=== PATIENT | female | born 1965 | race Caucasian/White ===

== ENCOUNTER 2018-01-04 06:26 | Day surgery (SDC) | payer BC ==
[~2018-01-04] VITALS: Ht 167.6 cm; Wt 72.5 kg
[~2018-01-04 06:26] MED LIST: AMOXICILLIN500 MG PO; MIRENA1 EACH IY; NASAL SPRAY; OMEPRAZOLE40 M1 PO; TRIAMTERENE-HC1 EAC1 PO
[2018-01-04 06:50] VITALS: BP 147/67
[2018-01-04] MEDS ORDERED: PERCOCET 5/31 TABLET PO (10:59)
[2018-01-04] MEDS ORDERED: COLACE100 MG PO (11:05)
[2018-01-04 11:20] VITALS: BP 146/69
[2018-01-04 12:20] VITALS: BP 130/65
[2018-01-04 13:02] VITALS: BP 136/74
== END 2018-01-04 13:00 | disposition home or self-care (01) ==
LOC: SDC
DX: K80.10 Calculus of gallbladder with chronic cholecystitis without obstruction (principal); K66.0 Peritoneal adhesions (postprocedural) (postinfection); Z68.31 Body mass index [BMI] 31.0-31.9, adult; E06.3 Autoimmune thyroiditis; I10 Essential (primary) hypertension; E55.9 Vitamin D deficiency, unspecified; Z82.49 Family history of ischemic heart disease and other diseases of the circulatory system; Z82.61 Family history of arthritis; Z81.1 Family history of alcohol abuse and dependence; Z97.5 Presence of (intrauterine) contraceptive device
CPT/HCPCS: 88304; J0131; J0330; J1100; J1170; J2250; J2405; J3010; Q0175; S0074

== ENCOUNTER 2018-01-06 05:54 | Emergency (ER) | payer BC ==
[~2018-01-06] VITALS: Ht 167.6 cm; Wt 71.7 kg
[~2018-01-06 05:54] MED LIST changes: +COLACE100 MG PO; +PERCOCET 5/31 TABLET PO
[2018-01-06 06:30] LABS: HEMATOCRIT 43.9 % (36.0-46.0); HEMOGLOBIN 15.2 G/DL (11.9-15.5); MCH 29.2 PG (29.0-34.0); MCHC 34.6 G/DL (30.0-36.0); MCV 84.3 FL (83-99); PLATELET COUNT 320 K/uL (156-360); RBC DIS.WIDTH-CV 13.4 % (11.8-14.6); RBC DIS.WIDTH-SD 41.9 % (39-53); RED BLOOD COUNT 5.21 M/uL (3.80-5.20); WHITE BLOOD COUNT 14.4 K/uL (4.1-10.2)
[2018-01-06 06:40] LABS: ALBUMIN 4.4 g/dL (3.2-4.8)
[2018-01-06 06:41] LABS: CHLORIDE 104 mEq/L (99-109); POTASSIUM 3.5 mEq/L (3.7-5.4); SODIUM 142 mEq/L (136-147)
[2018-01-06 06:43] LABS: GLUCOSE 125 mg/dL (70-99); TOTAL PROTEIN 7.5 g/dL (6.4-8.3)
[2018-01-06 06:45] LABS: TOTAL BILIRUBIN 0.5 mg/dL (0.0-1.0)
[2018-01-06 06:46] LABS: ALKALINE PHOSPHATASE 65 IU/L (3-129)
[2018-01-06 06:47] LABS: CREATININE 0.9 mg/dL (0.6-1.3); GFR ESTIMATE (CALCULATED) > 59 mL/min/
[2018-01-06 06:48] LABS: UREA NITROGEN (BUN) 10 mg/dL (9-23)
[2018-01-06 06:50] LABS: ALT (GPT) 18 IU/L (3-49)
[2018-01-06 06:57] LABS: QUANTITATIVE HCG < 4.0 MIU/ML
[2018-01-06 06:59] LABS: AMYLASE 59 IU/L (1-118)
[2018-01-06 07:07] LABS: AST (GOT) 11 IU/L (2-34); LIPASE 35 U/L (1.0-51.0)
[2018-01-06 07:34] LABS: APPEARANCE SL.HAZY ((CLEAR)); BILIRUBIN NEGATIVE; BLOOD NEGATIVE; COLOR YELLOW ((YELLOW)); GLUCOSE (STRIP) NEGATIVE; KETONES 5; LEUKOCYTES LARGE; NITRITE NEGATIVE; PROTEIN (STRIP) NEGATIVE; UROBILINOGEN 0.2 MG/DL (0.2-1.0)
[2018-01-06 07:45] LABS: BACTERIA RARE /HPF; EPITHELIAL CELLS 1+ /HPF; MUCUS TRACE /LPF; RED BLOOD CELLS 0-5 /HPF (0-5); UCUL ADDED? YES; WHITE BLOOD CELLS 20-30 /HPF (0-5)
[2018-01-06] MEDS ORDERED: ZOFRAN ODT4 MG PO (09:36)
[2018-01-06 10:00] VITALS: BP 183/87
== END 2018-01-06 10:01 | disposition home or self-care (01) ==
LOC: EME 05:54
DX: K59.00 Constipation, unspecified (principal); G89.18 Other acute postprocedural pain; R10.10 Upper abdominal pain, unspecified; K21.9 Gastro-esophageal reflux disease without esophagitis; Z90.49 Acquired absence of other specified parts of digestive tract
CPT/HCPCS: 74177; 80053; 81003; 82150; 83690; 84702; 85027; 87086; 99281; 99285; J2405; J3010; J7030